=== PATIENT | female | born 1945 | race Caucasian/White ===

== ENCOUNTER 2020-01-27 13:03 | Emergency (ER) | payer MEDICARE, SELFPAY ==
[2020-01-27 13:19] VITALS: BP 150/80; BP 152/71; PULSE 78; PULSE 88; RESP 18; TEMP 37; O2SAT 96; O2SAT 98; BMI 29.7
--- NOTE | 2020-01-27 13:26 | CT_ITS ---
EXAMINATION: CT HEAD WITHOUT CONTRAST CLINICAL INFORMATION: Weakness. COMPARISON: None TECHNIQUE: Contiguous axial imaging was performed from the skull base to vertex without intravenous administration of contrast. This CT examination was performed using dose optimization techniques as appropriate, variously including the following: *Automated exposure control *Adjustment of mA and/or kV according to patient size (this includes techniques or standardized protocols for targeted exams where dose is matched to indication/reason for exam; i.e. extremities or head) *Use of iterative reconstruction technique DLP: 1500 mGy-cm FINDINGS: There is no evidence of acute intracranial hemorrhage or territorial infarction. No abnormal mass effect or midline shift is seen. [place] to white matter differentiation is well preserved. No extra-axial fluid collections are identified. The lateral ventricles are symmetrical but enlarged. There is diffuse periarticular hypodensity suggestive of chronic small vessel ischemic changes. The osseous structures and soft tissues are normal. The mastoid air cells and visualized portions of the paranasal sinuses are well aerated. IMPRESSION: No acute intracranial process seen. Age-related cerebral volume loss with chronic small vessel ischemic changes
--- NOTE | 2020-01-27 13:26 | ECG_ITS ---
Test Reason : FALL Blood Pressure : / mmHG Vent. Rate : 077 BPM Atrial Rate : 077 BPM P-R Int : 158 ms QRS Dur : 078 ms QT Int : 364 ms P-R-T Axes : 044 -35 120 degrees QTc Int : 411 ms Normal sinus rhythm Left axis deviation T wave abnormality, consider lateral ischemia Abnormal ECG No previous ECGs available Referred By: Nicole Borja Electronically Signed By:VALENTIN WATERS MD
--- NOTE | 2020-01-27 13:26 | CT_ITS ---
EXAMINATION: CT CHEST WITHOUT CONTRAST CT CERVICAL SPINE WITHOUT IV CONTRAST CLINICAL INFORMATION: 74-year-old female patient with history of falls. COMPARISON: None. TECHNIQUE: Multidetector helical CT acquisition of the cervical spine was obtained without IV contrast. Multiplanar reformats were acquired and utilized for image interpretation. Multidetector volumetric imaging was performed from the thoracic inlet to below the diaphragms without intravenous contrast. Sagittal, coronal, and MIP axial reformatted images were obtained on the technologist workstation. This CT examination was performed using dose optimization techniques as appropriate, variously including the following: *Automated exposure control *Adjustment of mA and/or kV according to patient size (this includes techniques or standardized protocols for targeted exams where dose is matched to indication/reason for exam; i.e. extremities or head) *Use of iterative reconstruction technique DLP: 362 mGy-cm for cervical spine. 376 mGy-cm for chest. FINDINGS: C-SPINE: There is anatomic alignment of the vertebral bodies and posterior elements. There is no acute fracture and there is no acute subluxation. The craniocervical and atlantoaxial articulations are normal. Disc space narrowing is seen the levels of C3-C4 through C7. Degenerative changes involve the uncovertebral joints at the same levels. Posterior elements are intact. Neural foramina well patent. There is no prevertebral soft tissue swelling. No significant soft tissue abnormality within the neck. The left lobe the thyroid gland has been resected. The visualized lung apices are clear. CHEST: LUNG: No focal consolidation, or masses. A tiny calcified granuloma is located in the right upper lobe. Series 14, image 249. A 0.2 cm nodule is located in the right lower lobe. Series 14, image 194. A 0.3 cm subpleural node is located in the right middle lobe abutting the mediastinum. Series 14, image 324. No evidence of lung contusion. PLEURA: No hemothorax or pneumothorax. MEDIASTINUM: Normal heart size. Coronary calcification is present. No pericardial effusion. No hilar or mediastinal lymphadenopathy. VASCULAR: Calcific plaques are seen throughout the thoracic aorta and at the origins of the great vessels. A bovine arch is present. CHEST WALL/AXILLA: No axillary or internal mammary lymphadenopathy. OSSEOUS STRUCTURES: No visible acute fractures. Degenerative disease involves the levels of the upper lumbar spine and T12-L1. UPPER ABDOMEN: The patient's gallbladder has been surgically removed. IMPRESSION: 1. No evidence of acute fracture. 2. No posttraumatic sequelae in the chest.
--- NOTE | 2020-01-27 13:27 | ED_ITS ---
HPI - Weakness General Chief complaint: Fall Stated complaint: NECK PAIN S/P FALL FROM STANDING,+COLLAR Time Seen by Provider: 01/27/20 13:25 Source: patient and EMS Mode of arrival: EMS Limitations: no limitations History of Present Illness HPI Narrative: 74 yo female notes she has been weak for 2+ weeks and that when she walks she has a hard time and feels that her feet don't work and she falls to the right EMS called for lift assist today after a fall and the patient was noted to be listing to the right so they were able to get her to come to the ED, the patient also notes to have garbled speech she tells me this has been going on a while Complaint: generalized weakness Onset (ago): week(s) ( a couple ) Duration: constant Location: RUE and RLE Migration: none Severity: severe Quality: other (weakness) Relieving factors: none Exacerbating factors: movement Associated symptoms: loss of appetite and myalgias Related Data Home Medications Medication Instructions Recorded Confirmed amlodipine 5 mg PO DAILY 01/27/20 01/27/20 gabapentin 300 mg PO TID 01/27/20 01/27/20 hydrochlorothiazide 25 mg PO DAILY 01/27/20 01/27/20 nystatin 1 applic TOPICAL BID 01/27/20 01/27/20 paroxetine HCl 10 mg PO DAILY 01/27/20 01/27/20 tramadol 50 mg PO BID PRN 01/27/20 01/27/20 triamcinolone acetonide 1 applic TOPICAL BID 01/27/20 01/27/20 Allergies Allergy/AdvReac Type Severity Reaction Status Date / Time codeine [CODEINE] Allergy Unknown PASSED OUT Verified 01/27/20 13:18 oxycodone [From PERCOCET] Allergy Unknown NAUSEA & Verified 01/27/20 13:18 VOMITING Penicillins [PENICILLINS] Allergy Unknown ANAPHYLAXIS Verified 01/27/20 13:18 Jgyzsdh-[id number]-Ykt Reductase Allergy Swelling Verified 01/27/20 13:18 Inhibitor Review of Systems Review of Systems: Constitutional : No Weight loss, No Fever, positive Chills, pos Fatigue, pos Malaise ENT/Mouth : No sore throat, No Rhinorrhea Eyes: No Eye Pain, No Swelling, No Redness Cardiovascular : No Chest Pain, No SOB Respiratory : No Cough, No Sputum, No Wheezing Gastrointestinal : No Nausea, No Vomiting, No Diarrhea, No Constipation, No abdominal Pain, No Hematochezia, No Melena Genitourinary : No Dysuria, No Urinary Frequency, No Hematuria, Musculoskeletal : No joint pain, positive Myalgias, positive RLE swelling Skin : No Skin Lesions, No rash Neuro : pos Weakness, No Numbness, pos Dizziness, No Headache All other systems reviewed and are negative FOR[facility]LY [facility] Past Medical History Medical History (Updated 01/27/20 @ 16:18 by Nicole Borja DO) Hyperlipidemia Hypertension Hypothyroidism Social History Social History Alcohol intake: never Smoking Status: Current every day smoker Advance Directives: No Advance Directives Information Provided: No Physical Exam Vital Signs: Vital Signs: Vital Signs Temp Pulse Resp BP Pulse Ox 01/27/20 14:57 82 20 159/59 H 94 01/27/20 13:19 98.6 F 88 18 152/71 H 96 Body Mass Index 29.7 Appearance: Alert. Oriented X3. Mild distress Eyes: Pupils equal, round and reactive to light. ENT: Pharynx dry MM Neck: Normal inspection. Neck supple. CVS: Normal heart rate and rhythm. Pulses normal. Respiratory: No respiratory distress. Breath sounds normal. Abdomen: Soft and nontender. Skin: Skin warm and dry. Normal skin color. Normal skin turgor. Extremities: RLE 1+ pitting edema. No calf ttp Neuro: Oriented X 3. R sided drift, listing to right No sensory deficit. Course Course Course Narrative: signed out to Dr. Irving pending urine placement vs admission - 2+ weeks of weakness MDM - Weakness MDM Narrative Medical decision making narrative: 74 yo female with HTN, HPL, hypothyroidism comes in with 2 weeks of diff walking, leaning to the right, and somewhat garbled speech, the patient finallly came into the hospital today because she fell and EMS noted she was leaning to the right, she is drifting to R, has RLE edema - will need CT head/neck for stroke and trauma, labs, IVF, CXR, UA, anticipate admission vs placement Lab Data Result diagrams: 01/27/20 14:34 01/27/20 14:34 Labs: Lab Results 01/27/20 01/27/20 01/27/20 Range/Units 14:34 14:34 14:34 WBC 11.3 H (4.8-10.8) X10*3/uL RBC 4.75 (4.20-5.50) X10*6/uL Hgb 14.1 (12.0-16.0) g/dl Hct 41.7 (37-47) % MCV 87.8 (80-98) fL MCH 29.7 (27.0-33.0) pg MCHC 33.8 (31.0-35.0) g/dl RDW 13.5 (11.0-16.0) % Plt Count 322 (160-400) X10*3/uL MPV 8.3 L (9.4-12.3) fL Immature Gran % (Auto) 0.4 (0.0-0.4) % Neut % (Auto) 83.1 H (45-73) % Lymph % (Auto) 11.9 L (20-40) % [place] % (Auto) 4.2 (2-11) % Eos % (Auto) 0.0 (0-4) % Baso % (Auto) 0.4 (0-2) % Lymph # (Auto) 1.4 (1.2-4.9) X10*3/uL [place] # (Auto) 0.5 (0.1-1.2) X10*3/uL Eos # (Auto) 0.0 (0.0-0.4) X10*3/uL Baso # (Auto) 0.1 (0.0-0.2) X10*3/uL Abs Immat Gran (auto) 0.05 H (0.00-0.03) X10*3/uL Absolute Neuts (auto) 9.4 H (2.0-8.3) X10*3/uL Absolute Nucleated RBC 0.000 (0.0-0.012) X10*3/uL Nucleated RBC % (auto) 0.0 (0.0-0.2) /100WBC PT (10.8-13.0) SEC INR (0.9-1.1) APTT (24.1-38.0) SEC Sodium 139 (135-145) mmol/L Potassium 3.6 (3.3-5.1) mmol/l Chloride 99 (96-108) mmol/L Carbon Dioxide 29 (22-29) mmol/L Anion Gap 15 (12-20) BUN 20 H (9-16) mg/dL Creatinine 0.66 (0.5-1.4) mg/dL Estim Creat Clear Calc 72.3 Estimated GFR > 60 Random Glucose 149 H (60-115) mg/dL Lactic Acid (0.5-2.0) mmol/L Calcium 9.2 (8.4-10.2) mg/dL Magnesium (1.6-2.6) mg/dL Total Bilirubin (0.0-1.0) mg/dL Direct Bilirubin (0.0-0.5) mg/dL AST (5-31) U/L ALT (0-31) U/L Alkaline Phosphatase (39-117) U/L Ammonia 47 (13-55) umol/L Total Creatine Kinase (26-140) U/L Troponin I High Sens (<3.5-17.0) ng/L Total Protein (6.5-8.0) g/dL Albumin (3.5-5.0) g/dL Lipase (8-78) U/L TSH (0.32-4.0) mIU/mL 01/27/20 01/27/20 01/27/20 Range/Units 14:34 14:34 14:34 WBC (4.8-10.8) X10*3/uL RBC (4.20-5.50) X10*6/uL Hgb (12.0-16.0) g/dl Hct (37-47) % MCV (80-98) fL MCH (27.0-33.0) pg MCHC (31.0-35.0) g/dl RDW (11.0-16.0) % Plt Count (160-400) X10*3/uL MPV (9.4-12.3) fL Immature Gran % (Auto) (0.0-0.4) % Neut % (Auto) (45-73) % Lymph % (Auto) (20-40) % [place] % (Auto) (2-11) % Eos % (Auto) (0-4) % Baso % (Auto) (0-2) % Lymph # (Auto) (1.2-4.9) X10*3/uL [place] # (Auto) (0.1-1.2) X10*3/uL Eos # (Auto) (0.0-0.4) X10*3/uL Baso # (Auto) (0.0-0.2) X10*3/uL Abs Immat Gran (auto) (0.00-0.03) X10*3/uL Absolute Neuts (auto) (2.0-8.3) X10*3/uL Absolute Nucleated RBC (0.0-0.012) X10*3/uL Nucleated RBC % (auto) (0.0-0.2) /100WBC PT (10.8-13.0) SEC INR (0.9-1.1) APTT (24.1-38.0) SEC Sodium (135-145) mmol/L Potassium (3.3-5.1) mmol/l Chloride (96-108) mmol/L Carbon Dioxide (22-29) mmol/L Anion Gap (12-20) BUN (9-16) mg/dL Creatinine (0.5-1.4) mg/dL Estim Creat Clear Calc Estimated GFR Random Glucose (60-115) mg/dL Lactic Acid 1.2 (0.5-2.0) mmol/L Calcium (8.4-10.2) mg/dL Magnesium 2.3 (1.6-2.6) mg/dL Total Bilirubin 0.4 (0.0-1.0) mg/dL Direct Bilirubin < 0.2 (0.0-0.5) mg/dL AST 22 (5-31) U/L ALT 12 (0-31) U/L Alkaline Phosphatase 68 (39-117) U/L Ammonia (13-55) umol/L Total Creatine Kinase 154 H (26-140) U/L Troponin I High Sens < 3.5 (<3.5-17.0) ng/L Total Protein 7.2 (6.5-8.0) g/dL Albumin 4.2 (3.5-5.0) g/dL Lipase 31 (8-78) U/L TSH 0.47 (0.32-4.0) mIU/mL 01/26/ Range/Units 15:30 WBC (4.8-10.8) X10*3/uL RBC (4.20-5.50) X10*6/uL Hgb (12.0-16.0) g/dl Hct (37-47) % MCV (80-98) fL MCH (27.0-33.0) pg MCHC (31.0-35.0) g/dl RDW (11.0-16.0) % Plt Count (160-400) X10*3/uL MPV (9.4-12.3) fL Immature Gran % (Auto) (0.0-0.4) % Neut % (Auto) (45-73) % Lymph % (Auto) (20-40) % [place] % (Auto) (2-11) % Eos % (Auto) (0-4) % Baso % (Auto) (0-2) % Lymph # (Auto) (1.2-4.9) X10*3/uL [place] # (Auto) (0.1-1.2) X10*3/uL Eos # (Auto) (0.0-0.4) X10*3/uL Baso # (Auto) (0.0-0.2) X10*3/uL Abs Immat Gran (auto) (0.00-0.03) X10*3/uL Absolute Neuts (auto) (2.0-8.3) X10*3/uL Absolute Nucleated RBC (0.0-0.012) X10*3/uL Nucleated RBC % (auto) (0.0-0.2) /100WBC PT 12.7 (10.8-13.0) SEC INR 1.1 (0.9-1.1) APTT 25.3 (24.1-38.0) SEC Sodium (135-145) mmol/L Potassium (3.3-5.1) mmol/l Chloride (96-108) mmol/L Carbon Dioxide (22-29) mmol/L Anion Gap (12-20) BUN (9-16) mg/dL Creatinine (0.5-1.4) mg/dL Estim Creat Clear Calc Estimated GFR Random Glucose (60-115) mg/dL Lactic Acid (0.5-2.0) mmol/L Calcium (8.4-10.2) mg/dL Magnesium (1.6-2.6) mg/dL Total Bilirubin (0.0-1.0) mg/dL Direct Bilirubin (0.0-0.5) mg/dL AST (5-31) U/L ALT (0-31) U/L Alkaline Phosphatase (39-117) U/L Ammonia (13-55) umol/L Total Creatine Kinase (26-140) U/L Troponin I High Sens (<3.5-17.0) ng/L Total Protein (6.5-8.0) g/dL Albumin (3.5-5.0) g/dL Lipase (8-78) U/L TSH (0.32-4.0) mIU/mL ECG Data Attestation: I personally reviewed and interpreted this ECG as follows: ECG interpretation date: 01/27/20 ECG interpretation time: 13:42 Interpretation: Rate: 77 Rhythm: NSR [place]: left Normal P waves. Normal [place]. Normal QRS complex. ST T wave : inverted V3-V6 qTC: normal prior studies: none The study has been interpreted contemporaneously by me. . Discharge Plan Discharge Clinical Impression: Weakness Prescriptions: No Action amlodipine 5 mg Tablet 5 mg PO DAILY RF: 0 triamcinolone acetonide 0.1 % Cream 1 applic TOPICAL BID RF: 0 paroxetine HCl 10 mg Tablet 10 mg PO DAILY RF: 0 tramadol 50 mg Tablet 50 mg PO BID PRN (Reason: Pain (Scale Score 1-3)) RF: 0 nystatin 100,000 unit/gram Cream 1 applic TOPICAL BID RF: 0 gabapentin 300 mg Capsule 300 mg PO TID RF: 0 hydrochlorothiazide 25 mg Tablet 25 mg PO DAILY RF: 0
--- NOTE | 2020-01-27 13:30 | US_ITS ---
EXAMINATION: US VENOUS ULTRASOUND WITH DOPPLER LOWER EXTREMITY, RIGHT CLINICAL INFORMATION: Pain and swelling. COMPARISON: None TECHNIQUE: Ultrasound of the deep veins is performed from the hip to the calf with compression sonography and color and pulse Doppler assessment. Spectral analysis with color-flow imaging is performed. FINDINGS: There is normal venous compression and respiratory variation and augmented flow. The visualized common femoral vein, superficial femoral vein, profunda femoral vein, popliteal vein, and the trifurcation region shows no evidence of deep venous thrombosis. There is no significant popliteal fossa cyst. If the patient's symptoms persist, followup ultrasound in 5 days 7 days might be of value to exclude proximal propagation from a non-visualized calf vein. IMPRESSION: No DVT demonstrated in the right lower extremity.
--- NOTE | 2020-01-27 13:50 | PC.NURSE ---
PT ALERT AND ORIENTED X4. SKIN WPD. RESPIRATIONS EVEN AND NON LABORED. PATIENT LEANING TO RIGHT SIDE OF STRETCHER. SPEECH GARBLED, PAUSES TO FIND WORDS. EQUAL HAND GRASPS. NO DRIFT. LEFT EYE SLIGHTLY LESS OPEN; PT STATES THIS IS NORMAL. SMILE SYMMETRICAL. UNABLE TO LIFT RIGHT LEG; STATES THIS IS D/T PAIN. LEFT LEG ABLE TO BE LIFTED, BUT WEAK. RIGHT LEG SWOLLEN FROM KNEE DOWN; PT STATES IT HAS BEEN THIS WAY FOR ABOUT 3 WEEKS. REPORTS PAIN TO RIGHT LEG. DENIES ANY OTHER PAIN OR DISCOMFORT. US NOW AT BEDSIDE.
[2020-01-27] MEDS: 0.9 % Sodium Chloride 1,000 ML 999 ML IVCONT (13:55)
[2020-01-27 14:45] LABS: MANUAL DIFF FLAG NO
[2020-01-27 14:48] LABS: Basophils Absolute Auto 0.1 X10*3/uL (0.0-0.2); Basophils Percent Auto 0.4 % (0-2); Hematocrit 41.7 % (37-47); Hemoglobin 14.1 g/dl (12.0-16.0); Imm Gran Abs Auto 0.05 X10*3/uL (0.00-0.03); Imm Gran Pct Auto 0.4 % (0.0-0.4); Lymphocytes Absolute Auto 1.4 X10*3/uL (1.2-4.9); Lymphocytes Percent Auto 11.9 % (20-40); Mean Corpuscular HGB Conc 33.8 g/dl (31.0-35.0); Mean Corpuscular Hemoglobin 29.7 pg (27.0-33.0); Mean Corpuscular Volume 87.8 fL (80-98); Mean Platelet Volume 8.3 fL (9.4-12.3); Monocytes Absolute Auto 0.5 X10*3/uL (0.1-1.2); Monocytes Percent Auto 4.2 % (2-11); Neutrophils Absolute Auto 9.4 X10*3/uL (2.0-8.3); Neutrophils Percent Auto 83.1 % (45-73); Platelet Count 322 X10*3/uL (160-400); Red Blood Count 4.75 X10*6/uL (4.20-5.50); Red Cell Distribution Width 13.5 % (11.0-16.0); White Blood Count 11.3 X10*3/uL (4.8-10.8)
[2020-01-27 14:57] VITALS: BP 159/59; PULSE 82; RESP 20; O2SAT 94
[2020-01-27 15:09] LABS: Ammonia 47 umol/L (13-55)
[2020-01-27 15:14] LABS: Lactic Acid 1.2 mmol/L (0.5-2.0)
[2020-01-27 15:18] LABS: Anion Gap 15 (12-20); Blood Urea Nitrogen 20 mg/dL (9-16); Calcium 9.2 mg/dL (8.4-10.2); Carbon Dioxide 29 mmol/L (22-29); Chloride 99 mmol/L (96-108); Creatinine Clr Calc Pharmacy 72.3; Estimated Glomerular Filt Rate > 60; Glucose Random 149 mg/dL (60-115); Potassium 3.6 mmol/l (3.3-5.1); Sodium 139 mmol/L (135-145)
[2020-01-27 15:23] LABS: Troponin-I High Sensitivity < 3.5 ng/L (<3.5-17.0)
--- NOTE | 2020-01-27 15:31 | PC.NURSE ---
labs drawn and sent. covid swab completed
[2020-01-27 15:45] LABS: Thyroid Stimulating Hormone 0.47 mIU/mL (0.32-4.0)
[2020-01-27 15:46] LABS: Alanine Aminotransferase 12 U/L (0-31); Albumin Level 4.2 g/dL (3.5-5.0); Alkaline Phosphatase 68 U/L (39-117); Aspartate Amino Transferase 22 U/L (5-31); Bilirubin Direct < 0.2 mg/dL (0.0-0.5); Bilirubin Total 0.4 mg/dL (0.0-1.0); Lipase 31 U/L (8-78); Magnesium 2.3 mg/dL (1.6-2.6); Total Protein 7.2 g/dL (6.5-8.0)
[2020-01-27 16:05] LABS: INTERNATIONAL NORM RATIO 1.1 (0.9-1.1); Prothrombin Time 12.7 SEC (10.8-13.0)
[2020-01-27 16:08] LABS: Partial Thromboplastin Time 25.3 SEC (24.1-38.0)
[2020-01-27 16:45] LABS: B Type Natriuretic Peptide 14 pg/mL (<100)
[2020-01-27 18:04] LABS: SARS COV2 PCR INHOUSE NEGATIVE (Negative)
[2020-01-27 18:49] VITALS: BP 153/63; PULSE 73; RESP 18; TEMP 37.1; O2SAT 95
[2020-01-27 19:09] LABS: Glucose Urine UA NEG (NEG); Leukocyte Esterase Urine NEG (NEG); Nitrite Urine NEG (NEG); Specific Gravity - Urine >= 1.030 (1.005-1.025); Urine Blood TRACE (NEG); Urine Ketones NEG (NEG); Urine Protein 2+ MG/DL (NEG-TRACE)
[2020-01-27 19:10] LABS: Appearance Urine CLEAR; Color Urine YELLOW
[2020-01-27 19:15] LABS: Bacteria Urine 1+ /LPF; Mucus Urine 1+ /LPF; WBC Urine 0 /HPF (0-4)
[2020-01-27 23:02] VITALS: BP 122/43; PULSE 71; RESP 17; O2SAT 94
[2020-01-28] VITALS (8 sets, daily range): BP systolic 129–157; BP diastolic 51–95; PULSE 55–76; RESP 16–20; TEMP 36.3–38.8; O2SAT 92–96
--- NOTE | 2020-01-28 02:42 | PC.NURSE ---
pt states she has no pain, pt repositioned and no pain expressed. pt was warm to the touch rectal temp taken and 101.8
--- NOTE | 2020-01-28 03:49 | PC.NURSE ---
pt bladder scanned for 233 ml. pt is on the bedpan and attempting to give a urine.
[2020-01-28] MEDS: Acetaminophen 325 MG TABLET 975 MG PO (04:34)
--- NOTE | 2020-01-28 07:05 | PC.NURSE ---
PT RESTING RESP EVEN AND UNLABORED. PT AWARE OF PLAN OF CARE FOR PHYSICAL THERAPY EVAL.
--- NOTE | 2020-01-28 07:51 | PC.NURSE ---
Pt ate most of her breakfast.
--- NOTE | 2020-01-28 09:15 | PC.NURSE ---
pt daughter called [facility] and spoke with case management (kishor) daughter was updated on pt's status.
[2020-01-28 13:22] LABS: SARS COV2 PCR INHOUSE NEGATIVE (Negative)
--- NOTE | 2020-01-28 14:40 | PC.NURSE ---
PT GIVEN VANILLA PUDDING TO EAT. PT THOUGHT SHE WAS ON THE BED SINGH BUT SHE WAS NOT. THIS RN ASKED PT IF SHE NEEDED TO USE THE BED SINGH AND PT SAID NO . PT AWARE THAT SHE WILL BE GOING TO [facility] 1530 TODAY. PT REPOSITIONED IN BED PER HER REQUEST. AWARE
--- NOTE | 2020-01-28 15:09 | PC.NURSE ---
NURSE TO NURSE GIVEN TO BELLA (DIONISIO), PT AWARE OF PLAN OF CARE FOR TRANSFER TO RETIREMENT FACILITY VIA AMBULANCE.
--- NOTE | 2020-01-28 15:20 | MHC.CM.ED ---
Pt seen by case management in room 20. Reviewed PT recommendation for STR. Pt agreeable to STR. Pt lives with who is disabled. Pt was falling sleep during initial interview, but has been appropriate with subsequent interviews. Pt medically cleared for placement. [facility] accepted pt. Spoke with daughter, Noelle([phone]) about STR and is happy about placement. HCP completed with daughter as proxy per pt wishes. Expect D/C and ambulance transport about 3:30. Will continue to monitor for D/C needs.
== END 2020-01-28 16:24 | disposition short-term general hospital (02) ==
PROVIDERS: Physician Assistant; Emergency Provider Emergency Medicine; PCP Family Medicine
DX: R53.1 Weakness (principal); Z20.828 Contact with and (suspected) exposure to other viral communicable diseases; R60.0 Localized edema; I10 Essential (primary) hypertension; E78.5 Hyperlipidemia, unspecified; E03.9 Hypothyroidism, unspecified; F17.200 Nicotine dependence, unspecified, uncomplicated; Z91.81 History of falling; Z79.899 Other long term (current) drug therapy
CPT/HCPCS: 36415; 70450; 71250; 72125; 80048; 80076; 81001; 81003; 82140; 82550; 83605; 83690; 83735; 83880; 84443; 84484; 85025; 85610; 85730; 87040; 87635; 93005; 93971; 96360; 97162; 99285